=== PATIENT | male | born 1960 | race Caucasian/White ===

== ENCOUNTER 2016-11-06 10:28 | Day surgery (SDC) | payer OTHER ==
[~2016-11-06 10:28] MED LIST: ACETAMINOPHEN TAB 500 MG TAB PO ONE; DEXAMETHASONE SOD PHOSPHATE 10 MG/ML 1 ML VIAL IV ONE; DEXAMETHASONE SOD PHOSPHATE 4 MG/ML 1 ML VIAL IV ONE; FAMOTIDINE 20 MG/2 ML VIAL IV ONE; HYDROmorphone 1 MG/ML 1 ML SYRINGE IVP PRN; LACTATED RINGERS 1,000 ML IV SCH; LIDOCAINE 1% 20 ML VIAL (10MG/ML) FOR IV START INTRADERMA PRN; MIDAZOLAM 2 MG/2 ML VIAL IV PRN; ONDANSETRON 4 MG/2 ML VIAL IVP ONE; SCOPOLAMINE 1.5MG/72HR PATCH TRANSDERM ONE; ceFAZolin 1,000 MG in DEXTROSE/WATER 1 50ML.BAG IV ONE; ceFAZolin 2 GM in SODIUM CHLORIDE 0.9% 100 ML IVPB ONE
[2016-11-06] MEDS ORDERED: fentaNYL (PF) 50 MCG/ML 2 ML AMP ONE (13:06)
[2016-11-06] MEDS ORDERED: ePHEDrine 50 MG/ML 1 ML AMP ONE (13:06)
[2016-11-06] MEDS ORDERED: LIDOCAINE 1% INJ 10MG/ML (20 ML MDV) ONE (13:06)
[2016-11-06] MEDS ORDERED: HYDROmorphone (PF) 1 MG/ML ONE (13:06)
[2016-11-06] MEDS ORDERED: PHENYLEPHRINE-0.9% NACL SYG 1 MG/10 ML SYRINGE ONE (13:06)
[2016-11-06] MEDS ORDERED: MIDAZOLAM 2 MG/2 ML VIAL ONE (13:06)
[2016-11-06] MEDS ORDERED: PROPOFOL 10 MG/ML 20 ML VIAL IV ONE (13:06)
[2016-11-06] MEDS ORDERED: SUCCINYLCHOLINE CHLORIDE 100 MG/5 ML SYR IV ONE (13:06)
[2016-11-06] MEDS ORDERED: LIDOCAINE 1%-EPI 1:100,000 20 ML VIAL SQ ONE ×2 (13:55)
[2016-11-06] MEDS ORDERED: BACITRACIN 500 UNIT/GM OINT 28.4 GM TUBE TOPICAL ONE (13:55)
--- NOTE | 2016-11-06 15:10 | P.OP ---
Date of Procedure: 11/06/16 Preoperative Diagnosis: Left parotid mass Postoperative Diagnosis: Same Procedure(s) Performed: Left parotidectomy, superficial with facial nerve monitoring NIM ([employer]) Anesthesia: TOOA Surgeon: Timi Rodgers Estimated Blood Loss (ml): 5 Pathology: other (Left parotid mass) Condition: stable Disposition: PACU Indications for Procedure: Patient had a mass on the left parotid that he wished to have removed. All risks, benefits, and alternative therapies were discussed in detail. Risks of bleeding, infection, facial paralysis, Etelvina's syndrome etc. were explained. Consent was obtained and all questions were answered. Operative Findings: Left parotid mass noted Description of Procedure: This patient was taken to the operative room and placed in the supine position and a slight reverse Trendelenburg. The LEFT neck was sterilely prepped and draped in usual fashion. With use of a skin marker the incision was marked as a modified Epifanio incision. The subcutaneous tissue along the incision was injected with lidocaine 1% with epinephrine 1 100,000. Approximately 10 minutes were allowed wait for full vasoconstrictive effects to take place. An incision was made with a 15 blade in the usual fashion. Anterior and posterior skin flaps were developed. The anterior skin flap was sutured forward. We then continued our dissection and the parotid gland from the sternocleidomastoid muscle with care to keep the facial vein intact. The greater auricular nerve was identified and we attempted to maintain as many of the nerve fibers as possible during this dissection. We dissected down following the pointer cartilage to the main branch of the facial nerve and dissected all the branches. We utilized a NIM monitor and probe for this dissection and we continued to utilize this during the dissection for confirmation of the nerve integrity. After dissecting the branch of the facial nerve the tumor was identified and dissected free. We irrigated with copious amount of irrigation. No bleeding was identified. We inserted gelfoam. We closed the parotid masseteric fascia with 4-0 Vicryl. We closed the deep subcutaneous tissue with 4-0 Vicryl and 4-0 Monocryl. We closed the skin with a 5-0 Prolene in a running nonlocking fashion. Steri-Strips and a compression dressing was placed. Patient was taken to postanesthesia recovery in excellent condition and the patient tolerated this well. Follow-up will be in the office in 1 week for recheck.
== END 2016-11-06 16:45 | disposition home or self-care (01) ==
LOC: OR 10:28
PROVIDERS: ATTEND Otolaryngology
DX: D11.0 Benign neoplasm of parotid gland (principal); F17.200 Nicotine dependence, unspecified, uncomplicated; E07.9 Disorder of thyroid, unspecified; Z79.899 Other long term (current) drug therapy
CPT/HCPCS: 42415; J2250; J1100; J0690; J2405; J2001; J3010; J1170; J2370; J0330; J2704; 88307